=== PATIENT | male | born 1985 | race American Indian/Alaskan Native ===

== ENCOUNTER 2017-01-22 09:44 | Day surgery (SDC) | payer OTHER ==
[2017-01-17 08:17] VITALS: BMI 30.4
[2017-01-22] MEDS ORDERED: Lactated Ringer's 1,000 ML IV ONE ×4 (11:03→15:15)
[2017-01-22] MEDS ORDERED: Rocuronium 10 mg/ml (10 ml) ONE (11:05)
[2017-01-22] MEDS ORDERED: Propofol 10 mg/ml Inj (20 ML) ONE (11:05)
[2017-01-22] MEDS ORDERED: Lidocaine Hydrochloride 5 ML INJ ONE (11:05)
[2017-01-22] MEDS ORDERED: ceFAZolin IV 2 gm in Dextrose 1 GM/50 ML BAG IVPB ONE (11:23)
--- NOTE | 2017-01-22 11:28 | RAD ---
PROCEDURE: Right Ankle Radiographs. HISTORY: Preop right ankle reconstruction COMPARISON: None FINDINGS: BONES: Normal. No fracture. No suspicious lytic or blastic change. JOINTS: There is some joint space narrowing the tibiotalar joint with osteophytic development and cortical sclerosis compatible degenerative joint disease. . There is limited I would evaluation. Talar dome intact SOFT TISSUES: Normal. OTHER FINDINGS: None. IMPRESSION: Osteoarthritis identified in the right ankle without fracture or dislocation as discussed above.
[2017-01-22] MEDS ORDERED: Midazolam 2 MG/2 ML VIAL ONE (11:36)
[2017-01-22] MEDS ORDERED: Neostigmine Methylsulfate 3mg/3ml Syringe IV ONE (13:52)
[2017-01-22] MEDS ORDERED: Bacitracin Ointment 30 GM TUBE ONE (13:55)
[2017-01-22] MEDS ORDERED: Morphine 4 MG/ML VIAL ONE ×2 (13:56→14:25)
--- NOTE | 2017-01-22 14:55 | PCM.SURG1 ---
Surgeon's Initial Post Op Note - Surgeon's Notes Surgeon: Nelly Deicer Repairer: DR salinas,PGY2( podiatry)/ JAYDEN Leonard Type of Anesthesia: General Endo Anesthesia Administered By: DR Mc Domingo Pre-Operative Diagnosis: Chronic Instability R ankle. Failed R ankle Reconstruction/ attenuatioin /rupture of Arthrex (internal Brace). synovitis subtalar joint. hypertrophic scar / keloid lateral ankle incision/ Operative Findings: as aboVe. \\rupture internal brace () fiber braid)- further - no control of inversion instability by prior repair of calcaneofibular [id number] of calcaneofibuLAR LIGAMENT REPAIR. SYNOVITS SUBTALAR JOINT. HYPERTROPHIC SCAR ( KELOID) LATERAL ANKLE INCISION Post-Operative Diagnosis: as above. rupture "internal brace "technique. rupture calcaneofibular ligament. synovitis subtalar joint. hypertrophic keloid lateral aspect L ankle Operation Performed: Revision L lateral ankle reconstruction (Modified [facility] - [place])-. arthrotomy subtalar joint- partial synovectomy. hardware removal ( deep). autograft/allograft bone graft. excisin skin/subcutrnaeous tissue and some muscle. evaluation/manipuilation L ankle under fluoro/anesthesia. applx short leg posteriro splint Specimen/Specimens Removed: fiberbraid/hardware(deep) Peek anchors. synovium. skin/subcutaneous mrtissue/muscle Estimated Blood Loss: EBL {In ML}: 20 Blood Products Given: N/A Drains Used: No Drains Post-Op Condition: Good Date of Surgery/Procedure: 01/22/17 Time of Surgery/Procedure: 12:15 (time in room/anaesthesia indcution time 11:28)
[2017-01-22] MEDS ORDERED: Bupivacaine HCl 0.25% PF (10 ml) Inj ONE ×2 (15:02)
--- NOTE | 2017-01-22 15:20 | RAD ---
PROCEDURE: Right Ankle Radiographs. HISTORY: s/p right ankle surgery COMPARISON: 01/22/2017 at 10:24 a.m. FINDINGS: BONES: No acute fracture. Degenerative change at the anterior tibiotalar articulation. Marginal osteophyte anterior distal tibia. Talar dome is smooth. There is postoperative change with a surgical device in the mid calcaneus. Limited evaluation. Surgical aniceto over lateral aspect of the ankle. JOINTS: As above SOFT TISSUES: Lateral soft tissue swelling consistent with postoperative change OTHER FINDINGS: None. IMPRESSION: Postoperative changes as above. Degenerative change at anterior tibiotalar articulation. .
[2017-01-22] MEDS ORDERED: Hydrocodone/Acetaminophen 5 mg /300 mg Tab PO PRN (15:21)
[2017-01-22] MEDS ORDERED: HYDROmorphone 0.5 mg/0.5 ml ISec IVP PRN (15:22)
[2017-01-22 15:58] VITALS: TEMP 97.6
[2017-01-22 16:00] VITALS: O2SAT 96
[2017-01-22] MEDS ORDERED: ceFAZolin IV 1 gm in Dextrose 1 GM/50 ML BAG IVPB ONE (16:00)
[2017-01-22 17:00] VITALS: BP 96/54; PULSE 88; RESP 20
--- NOTE | 2017-01-22 18:52 | PCM.ANESB2 ---
Popliteal Nerve Block - Popliteal Nerve Block Procedure Performed: Popliteal Nerve Block Right - Procedure Popliteal Nerve Block: This procedure was explained to the patient that it is for post-operative pain management. Consent was obtained after a thorough discussion with the patient regarding the benefits and possible complications of local anesthetic block of the sciatic nerve at the popliteal level. The patient was brought to the operating room and standard monitors are applied. Time-out was held with the circulating nurse to confirm the correct surgery and the appropriate block. After applying oxygen by nasal cannula and administering IV Sedation, patient's RIGHT operative leg was gently raised and supported and the groove in between the biceps femoris and vastus lateralis muscles was carefully palpated. The skin approximately 8cm above the popliteal crease was then marked. The ultrasound transducer was then applied to the posterior thigh approximately 8cm above the popliteal crease in the transverse plane and the sciatic nerve before its division was visualized lateral to the popliteal artery and in between the bicep femoris and semimembranosus/semitendinosus muscles. After identification, the lateral portion of the thigh was prepped with Betadine solution three times and Lidocaine 1% was injected subcutaneously for topical anesthesia. At this point, a # 21 gauge Stimuplex insulated 4 inch needle was inserted into pre-marked area and advanced in a perpendicular direction. The needle was inserted above the ultrasound transducer in-plane towards the sciatic nerve in a [id number] direction. Needle advancement was performed carefully under direct ultrasound visualization. After repeated negative aspiration, _5___ cc of _0.25_% _bupivicaine was injected and this was flowed with _15___ cc of _0.25 _% _bupivicaine. Under ultrasound guidance the local anesthetics were observed surrounding sciatic nerve . The needle was removed intact and sterile dressing was applied. The patient tolerated the popliteal nerve block well with stable vital signs and no paresthesias or complaints.
--- NOTE | 2017-01-23 15:29 | RAD ---
PROCEDURE: Intraoperative Fluoroscopy. HISTORY: RT ANKLE INSTABILITY,PAIN LIGAMENT FINDINGS: Fluoroscopic assistance was provided for right ankle manipulation.
--- NOTE | 2017-01-24 05:48 | OP ---
PROCEDURE DATE: 01/22/2017 PREOPERATIVE DIAGNOSES: Pain and recurrent instability and swelling of right ankle, status post post-traumatic work-related injury to the right ankle and status post two failed ankle reconstructions. POSTOPERATIVE DIAGNOSES: 1. Unstable right ankle, especially to inversion and anterior drawer. 2. Synovitis to the right subtalar joint. 3. Failed painful hardware in the area of the right ankle. OPERATIVE FINDINGS: As above. OPERATIVE PROCEDURE: 1. Complex revision, lateral ankle reconstruction, modified (Arthrex, Rosalinda-Mandan procedure). 2. Arthrotomy and synovectomy and debridement of the subtalar joint. 3. Removal of hardware, deep. 4. Allograft, autograft, bone grafting to the tunnels. 5. Excision of the skin, subcutaneous tissue and a bit of extensor digitorum brevis muscle and primary plastic closure. Application of [place] compression dressing, posterior splint, positioning of fluoroscope, interpretation of video images. SURGEON: Cecilio Villegas MD GARDENING MANAGER: Sushma Gallardo, certified registered nursing. SECOND DATA POWER CONSULTANT: Mary, second year podiatry resident. OPERATIVE INDICATION: Andrade Barrera is a 31-year-old gentleman who is employed by [employer] in [place], [place]. The patient had sustained a work-related injury in 2016, and as a direct cause for the result of that injury, underwent a primary repair of the ATFL. This failed and the patient was re-operated by Dr. Aguirre, who performed an internal brace procedure, which unfortunately failed. The patient continued to have recurrent pain and instability, especially to inversion and anterior drawer, limited range of motion, recurrent swelling. The patient was treated conservatively with intraarticular injection, activity modification, and therapy. The patient did not improve. Pros, cons, risks and benefits of surgical approach were discussed after failure of conservative management, including physical therapy, activity modification, and antiinflammatory medication. Pros, cons, risks, and benefits of surgical approach were discussed including mechanical failure, infection, thromboembolic disease, secondary injury, secondary or tertiary surgery. The patient can no longer stand the discomfort. OPERATIVE PROCEDURE: After having obtained informed consent in the above fashion, after the satisfactory induction of general endotracheal anesthesia, after having identified site, side, and procedure and a clinical pause/time-out, the patient identified as Andrade Barrera, in the supine position with all bony prominences well padded, the right lower extremity was prepped and re-draped in the usual fashion for lower extremity surgery. Under the surgeon's direction, the fluoroscope was positioned. Video images were generated and therapeutic decisions were made there from. The patient has a failed anterior drawer procedure. The patient has a positive anterior drawer speaking for failure of the internal brace as well as marked inversion with a positive click test. The patient has marked increased instability to inversion speaking for incompetence of the calcaneofibular ligament. It should be noted that the patient underwent MRI examination, which revealed evidence of disruption of a lateral ankle reconstruction. Again, after having obtained informed consent, after satisfactory induction of the anesthetic, after having identified site, side, and procedure, and a clinical pause/time-out, the patient identified as Andrade Barrera, in the supine position with all bony prominences well padded, the left lower extremity was prepped and re-draped in the usual fashion for lower extremity surgery. After a continued evaluation under anesthesia, an incision is described incorporating the initial incision and extending 3 to 4 fingerbreadths proximally and 2 fingerbreadths distally. The skin incision was carried down through the skin, subcutaneous tissue, and ellipse of skin is removed. Dissection was carried down to the fibula and there was found to be evidence of painful hardware from the previous reconstruction. The subtalar joint is identified and great care is taken to perform a partial synovectomy and excavation of fat in the sinus tarsi as well as synovectomy, after arthrotomy of the subtalar joint is accomplished. This having been accomplished, the prior internal braces found to be incompetent and great care was taken to carefully remove the deep hardware, which was painful and incompetent. The PEEK remnants were removed, so removal of hardware deep with the high speed bur is accomplished in those pieces of PEEK were removed. This having been accomplished, arthrotomy of the subtalar joint having been accomplished with partial synovectomy, attention was turned down now to the implantation of the new anchors and this having been accomplished, the attention was then turned to the lateral aspect of the talus first. Again arthrotomy, partial synovectomy having been accomplished, excision of fat in the subtalar joint removed. The dissection was carried down to the distal fibula, to the distal tib. Periosteum was debrided anteriorly and posteriorly and the deep hardware and foreign bodies are removed, the remnants of the sutures and the suture anchors. At this point in time, under the surgeon's direction, the fluoroscope was positioned. The previous tunnel was identified on the talus and same attitude is taken to avoid puncturing of the talar dome. This having been accomplished using the high speed bur, the PEEK hardware was removed and at this point in time, drilling was accomplished with reaming and the 5.5 suture push SwiveLock is introduced after reaming and over the guidewire, the SwiveLock is introduced. SwiveLock having been introduced, it is removed, and at this point in time, the gracilis allograft is prepared. The gracilis allograft is whip-stitched using the Arthrex technique. This having been accomplished, this limb of the allograft is placed into the hole, which was just reamed prior to introduction of the SwiveLock anchor. SwiveLock anchor was introduced and fixed and the free suture is used to secure the anchor. This having been accomplished, attention was turned to the fibula and upon approximately 14 mm above the fibular tip and drilling obliquely from distal anterior to proximal posterior using again the 5 mm reamer, the allograft was put through and a second reamer was accomplished 5 mm above the distal fibula, also anterior to posterior with the exiting hole. The position of the tunnel was just found to be excellent. This is the recreation of the Rosalinda-Babar procedure. The gracilis allograft is placed through the fibula from anterior to posterior and from posterior to anterior and is taken out and this is secured at the anterior fibula using another PushLock anchor. It should be noted that attention was now turned to identification of the peroneal tubercle on the lateral face of the calcaneus at a point approximately 14 mm posteriorly to 16 mm posteriorly and 4 mm superiorly. The guidewire was placed through, reaming was accomplished, and the SwiveLock anchor is placed into the calcaneus. This having been accomplished, the calcaneofibular ligament is reconstructed with the gracilis allograft. The excess is trimmed. At this point in time, allograft bone graft is accomplished to the talar tunnel to the fibular tunnel and to the calcaneal tunnel. The wound was thoroughly irrigated. A PushLock anchor is used to reiterate the peroneal retinaculum and then closed in layers. After irrigation, verification of position was offered on AP and lateral image intensification views, closed in layers with interrupted Vicryl and aniceto to skin. [place] compression dressing and posterior splint were applied. Unfortunately, this constellation of injuries and the complex reconstruction are as a direct cause for the result of the injury that this patient had sustained at work. Cecilio Villegas MD
== END 2017-01-22 16:55 | disposition home or self-care (01) ==
LOC: C.SDS 09:44
PROVIDERS: ATTEND Orthopaedic Surgery
DX: S93.402D Sprain of unspecified ligament of left ankle, subsequent encounter (principal); M25.571 Pain in right ankle and joints of right foot; T84.293D Other mechanical complication of internal fixation device of bones of foot and toes, subsequent encounter
CPT/HCPCS: 27703; 27704; 73600; 88300; 88305; 88311; 97116; 97161; C1713; C1762; G8978; G8979; G8980; J0690; J1100; J1885; J2250; J2270; J2405; J2704; J2710; J2765; J3010; J7120